=== PATIENT | female | born 1930 | race Caucasian/White ===

== ENCOUNTER → 2017-02-20 | Outpatient (CLI) | payer MEDICARE, OTHER ==
[~2017-02-20] MED LIST: ALLEGRA PO; ASPIRIN EC81 M1 PO; ASPIRIN PO; ATIVAN PO; BAYER CHEWABLE81 MG PO; CIPRO PO; COUMADIN PO; COUMADIN2.5 MG PO; HYOMAX0.125 MG PO; LEXAPRO PO; LOPRESSOR PO; LORAZEPAM1 MG PO; LOVENOX SUBQ; MIRALAX17 GM PO; MOTION SICKNESS25 M4 PO; MOTION SICKNESS25 M5 PO; NEURONTIN PO; NEXIUM PO; NITROFURANTOIN100 M3 PO; OMNICEF300 M1 PO; PYRIDIUM PO; RYTHMOL PO; RYTHMOL SR225 MG PO; RYTHMOL225 MG PO; SENNA8.6 M2 PO; SIMVASTATIN40 MG PO; STOOL SOFTENER1 EAC1 PO; TRIMPEX100 MG PO; VIT B-12 PO; VITAMIN D-32000 UNI2 PO; VITAMIN D2400 UNIT PO; ZOCOR PO; ZOFRAN PO
--- NOTE | ~2017-02-20 | MY29 ---
[facility] A Service of [facility] RADIOLOGY TEXT RESULTS PATIENT: SAWYER PURDY LOCATION: [facility] : 32 UNIT #: [id number] AGE: [address]: Carlos Barney MD SEX: F ORDER DR: [id number] [facility] [address] [place], [place] [address] [id number] O MR#: [id number] Acc #: [id number] NAME: SAWYER PURDY : 1930 SEX: F STUDY DATE/TIME: 02/20/2017 13:51 UNIT: [facility] ROOM: STUDY DESCRIPTION: MY [facility] SCREENING W/ CAD BILAT Attending Physician: Carlos Barney M.D. Referring Physician: Carlos Barney M.D. Ordering Physician: Carlos Barney M.D. Primary Care Physician: Carlos Barney M.D. MEDICAL IMAGING REPORT This report is preliminary unless electronic signature is present EXAM Bilateral digital screening mammogram with CAD. DATE 02/20/2017 HISTORY 86-year-old female with family history of breast cancer in her sister and mother and daughter. No personal history of breast cancer or current complaints. COMPARISON Bilateral screening mammogram 01/28/2016, 01/07/2015. FINDINGS CC and MLO views were obtained of each breast utilizing digital technique and reviewed with an FDA-approved CAD device. Numerous round skin markers are placed over each breast denoting skin lesions. Scattered fibroglandular densities are present bilaterally. The parenchymal pattern appears stable. Fibronodular density within the posterior third left breast along the posterior nipple line is unchanged from prior. No architectural distortion or suspicious cluster of microcalcification. Benign vascular calcifications bilaterally. IMPRESSION BIRADS 2. Benign findings. Routine bilateral screening mammogram is recommended in 1 year. Patients over the age of 40 are entered into a reminder system with target due date for the next mammogram. A result letter will also be sent to the [facility] A Service of [facility] RADIOLOGY TEXT RESULTS PATIENT: SAWYER PURDY LOCATION: [facility] : 32 UNIT #: [id number] AGE: [address]: Carlos Barney MD SEX: F ORDER DR: patient. BIRADS: 2 Benign finding. Dictated by... Miya Fernandez M.D. THIS IS AN ELECTRONICALLY VERIFIED REPORT Miya Fernandez M.D. at 02/21/2017 8:56 AM HENNY/lelo TD: 02/20/2017 17:45 JOB #: [id number] MEDICAL IMAGING REPORT Page 1 of 1 COPY
== END | disposition home or self-care (01) ==
LOC: CWCC 13:24
DX: Z12.31 Encounter for screening mammogram for malignant neoplasm of breast (principal); Z80.3 Family history of malignant neoplasm of breast
CPT/HCPCS: G0202